=== PATIENT | male | born 1945 | race Caucasian/White ===

== ENCOUNTER 2019-01-21 11:17 | Day surgery (SDC) | payer MEDICARE, OTHER ==
[~2019-01-21] VITALS: Ht 175.3 cm; Wt 88.3 kg
[~2019-01-21 11:17] MED LIST: Aspirin EC81 MG; CYAN1000 PO; Cartia Xt240 MG PO; Coumadin5 MG PO; DAILY MULTIPLE1 EACH PO; DHEA PO; DIGO.125 PO; DILT120 PO; DILT300 PO; DRON400T PO; MULVIT PO; VITAMIN D32000 UNIT PO; Vitamin B-122000 MCG PO
--- NOTE | 2019-01-21 13:05 | NUR ---
01/21/19 1305 Herminia Piña SIMETHECONE WITH STERILE WATER PUT THROUGH BIOPSY PORT FOR LARGE AMOUNT OF BILE TO HELP CLEAR VIEW
--- NOTE | 2019-01-21 14:08 | NUR ---
01/21/19 1408 Herminia Piña PATIENT REFUSED MULTIPLE OFFERS OF SOMETHING TO DRINK.
== END 2019-01-21 14:00 | disposition home or self-care (01) ==
LOC: ORSCSDS 11:17
PROVIDERS: Internal Medicine Gastroenterology
PROC: 0DBL8ZX Excision of Transverse Colon, Via Natural or Artificial Opening Endoscopic, Diagnostic (ICD-10-PCS; principal; 2019-01-21 12:45)
DX: Z12.11 Encounter for screening for malignant neoplasm of colon (principal); D12.3 Benign neoplasm of transverse colon; K64.8 Other hemorrhoids; K57.30 Diverticulosis of large intestine without perforation or abscess without bleeding; Z86.010 Personal history of colon polyps; E78.5 Hyperlipidemia, unspecified; I48.2 Chronic atrial fibrillation; Z87.891 Personal history of nicotine dependence; Z79.01 Long term (current) use of anticoagulants; Z79.899 Other long term (current) drug therapy
CPT/HCPCS: 88305; J2704; J7120

== ENCOUNTER 2020-07-02 14:10 | Day surgery (SDC) | payer MEDICARE ==
[~2020-07-02] VITALS: Ht 175.3 cm; Wt 89.7 kg
== END 2020-07-02 15:35 | disposition home or self-care (01) ==
LOC: ORSCSDS 14:10
PROVIDERS: Anesthesiology
PROC: 3E0R33Z Introduction of Anti-inflammatory into Spinal Canal, Percutaneous Approach (ICD-10-PCS; principal; 2020-07-02 15:15)
DX: M51.16 Intervertebral disc disorders with radiculopathy, lumbar region (principal); G89.29 Other chronic pain; G47.33 Obstructive sleep apnea (adult) (pediatric); E78.00 Pure hypercholesterolemia, unspecified; I48.91 Unspecified atrial fibrillation; Z79.01 Long term (current) use of anticoagulants; Z79.899 Other long term (current) drug therapy
CPT/HCPCS: J1040

== ENCOUNTER 2022-01-27 09:57 | Day surgery (SDC) | payer MEDICARE ==
[~2022-01-27] VITALS: Ht 175.3 cm; Wt 88.1 kg
[2022-01-27] MEDS ORDERED: DHEA PO (10:28)
[2022-01-27] MEDS ORDERED: RED YEAST (10:28)
== END 2022-01-27 12:41 | disposition home or self-care (01) ==
LOC: ORSCSDS 09:57
PROVIDERS: Internal Medicine Gastroenterology
PROC: 0DBM8ZX Excision of Descending Colon, Via Natural or Artificial Opening Endoscopic, Diagnostic (ICD-10-PCS; principal; 2022-01-27 11:15)
PROC: 0DBK8ZX Excision of Ascending Colon, Via Natural or Artificial Opening Endoscopic, Diagnostic (ICD-10-PCS; principal; 2022-01-27 11:15)
DX: Z12.11 Encounter for screening for malignant neoplasm of colon (principal); Z86.010 Personal history of colon polyps; D12.2 Benign neoplasm of ascending colon; K57.30 Diverticulosis of large intestine without perforation or abscess without bleeding; K64.8 Other hemorrhoids; I48.91 Unspecified atrial fibrillation; Z79.01 Long term (current) use of anticoagulants; G62.9 Polyneuropathy, unspecified; Z95.0 Presence of cardiac pacemaker; Z79.899 Other long term (current) drug therapy; G47.33 Obstructive sleep apnea (adult) (pediatric)
CPT/HCPCS: 88305; J2704

== ENCOUNTER 2025-06-17 10:03 | Day surgery (SDC) | payer MEDICARE ==
[~2025-06-17] VITALS: Ht 175.3 cm; Wt 83.8 kg
[~2025-06-17 10:03] MED LIST changes: +Crestor40 MG PO; +DIGOX125 MC1 PO; +RED YEAST
[2025-06-17] MEDS ORDERED: XARELTO20 MG (10:25)
[2025-06-17] MEDS ORDERED: C COMPLEX1000 M1 (10:26)
[2025-06-17] MEDS ORDERED: LATA.005SO (10:47)
[2025-06-17 12:45] VITALS: BP 108/72
== END 2025-06-17 12:15 | disposition home or self-care (01) ==
LOC: ORSCSDS 10:03
PROVIDERS: Internal Medicine Gastroenterology
PROC: 0DBL8ZX Excision of Transverse Colon, Via Natural or Artificial Opening Endoscopic, Diagnostic (ICD-10-PCS; principal; 2025-06-17 11:30)
DX: Z12.11 Encounter for screening for malignant neoplasm of colon (principal); D12.3 Benign neoplasm of transverse colon; K57.30 Diverticulosis of large intestine without perforation or abscess without bleeding; Z86.0101 Personal history of adenomatous and serrated colon polyps; G47.33 Obstructive sleep apnea (adult) (pediatric); E78.5 Hyperlipidemia, unspecified; I48.91 Unspecified atrial fibrillation; Z95.0 Presence of cardiac pacemaker; Z79.01 Long term (current) use of anticoagulants; Z79.899 Other long term (current) drug therapy
CPT/HCPCS: 88305; J2704